=== PATIENT | male | born 1945 | race Caucasian/White ===

== ENCOUNTER → 2017-10-28 | Outpatient (CLI) | payer MEDICARE ==
[~2017-10-28] VITALS: Ht 172.7 cm; Wt 122.7 kg
[~2017-10-28] MED LIST: ALLO100T PO; APIX5TAB PO; ATOR10TA15 PO; CHLORHEXIDINE GLUCONATE 2 % 1 PACK (2 CLOTHS) TOPICAL PRN; COLB500.5 PO; COZA50TA PO; FLUT50SP EACH NARE; FURO40TA PO; GLIM1TAB PO; HYDR-3583 PO; LACTATED RINGER'S 1000 ML IV PRN; LEVO175T2 PO; LIDOCAINE HCL 1% PF 5 ML SYRINGE OTHER ONE; METF1000 PO; METO-426 PO; METOPROLOL TARTRATE 25 MG TAB PO PRN; MULTTAB67 PO; POVIDONE IODINE 5% (ANTISEPSIS KIT) 4 APPLICATIONS EACH NARE PRN; PROPOFOL 200 MG/20 ML AMP IV ONE; SODIUM CHLORID 0.9% 500 ML IV PRN; TYLETAB36 PO; VITA400T18 PO
--- NOTE | 2017-10-28 10:15 | EKG ---
Date Performed: 10/28/2017 Time Performed: 09:06:16 PTAGE: 72 years EKG: ATRIAL FIBRILLATION WITH ABERRANT CONDUCTION OR VENTRICULAR PREMATURE COMPLEXES NONSPECIFIC T-WAVE ABNORMALITY ABNORMAL ECG NO PREVIOUS TRACING DOCTOR: George Shook Interpretating Date/Time 10/28/2017 10:13:39
[2017-10-28 11:50] VITALS: BP 136/78; PULSE 65; RESP 16; TEMP 97.5; O2SAT 97
--- NOTE | 2017-10-28 11:52 | PD.PROCEDR ---
GI Procedure PROCEDURE PERFORMED EGD with biopsy followed by an endoscopic ultrasound INDICATION FOR PROCEDURE Abdominal pain, dilated common bile duct PROCEDURE: The procedure, risks and benefits were discussed with Patient/POA and informed consent was obtained. Anesthesia sedated Patient with Diprivan. Patient was placed in the left lateral decubitus position. EGD: The Pentax videoscope was introduced through the oropharynx and advanced to the second portion of the duodenum under direct visualization. Retroflexion was performed in the stomach. FINDINGS: The esophagus this was normal Stomach there was patchy erythema in the antrum but no ulcerations no erosions no blood or bleeding antral biopsies were taken for further evaluation The duodenum there was some patchy erythema in the duodenal bulb this was biopsied otherwise the duodenum was unremarkable EUS: The Pentax videoscope was introduced through the oropharynx and advanced to the second portion of the duodenum . FINDINGS: The pancreas appeared to be of normal echotexture from head to tail Pancreatic duct was normal The gallbladder was normal The common bile duct was also normal measuring about 5 mm with no filling defects The ampulla was unremarkable No lymphadenopathy was seen ESTIMATED BLOOD LOSS: None SPECIMENS REMOVED: Antral and duodenal biopsies COMPLICATIONS: None IMPRESSION: Mild gastritis Mild duodenitis Unremarkable endoscopic ultrasound PLAN: Await biopsies Follow-up in clinic in 3-4 weeks Sheldon Dodd MD Oct 28, 2017 11:52
== END ==
LOC: HEND 08:10
PROVIDERS: ATTEND Internal Medicine Gastroenterology
DX: K29.70 Gastritis, unspecified, without bleeding (principal); K29.80 Duodenitis without bleeding; K83.8 Other specified diseases of biliary tract; R10.9 Unspecified abdominal pain; I48.91 Unspecified atrial fibrillation
CPT/HCPCS: 00731; 43259; 88305; 88312; 93005; J7120